=== PATIENT | female | born 1960 | race Caucasian/White ===

== ENCOUNTER 2016-07-26 13:23 | Observation (INO) ==
--- NOTE | 2016-07-26 13:43 | Emergency Department Note ---
Disposition Clinical Impression: Dehydration Syncope Qualifiers: Syncope type: unspecified Qualified Code(s): R55 - Syncope and collapse UTI (urinary tract infection) Qualifiers: Urinary tract infection type: acute cystitis Hematuria presence: without hematuria Qualified Code(s): N30.00 - Acute cystitis without hematuria Disposition: Admitted As Inpatient Condition: Good Referrals: Albert Vallejo MD [Primary Care Provider] - General Adult HPI - General Chief complaint: ED General Medical Stated complaint: fell 3 hrs ago now sleepy Source: patient Limitations: other - History of Present Illness HPI Narrative: Patient presents to the emergency department for evaluation of a fall. states that she typically gets up at 7:00 in the morning, he woke up at 10:00 this morning, she walked to the toilet and when she attempted to sit down she fell to the ground with possible syncopal episode. Upon presentation to the ED she states she feels mildly weak generally without any focal lateralizing deficits. She denies other complaints. Pain Scale: 0 - Related Data Home Medications Medication Instructions Recorded Confirmed Budesonide/Formoterol 160/4.5 2 puff IH BIDR 01/29/15 07/26/16 [Symbicort 160/4.5] ClonazePAM [Klonopin] 1 mg PO BID 01/29/15 07/26/16 FLUoxetine HCl [Prozac] 40 mg PO DAILY 01/29/15 07/26/16 Furosemide [Lasix] 40 mg PO DAILY 01/29/15 07/26/16 Gabapentin [Neurontin] 600 mg PO QAM 01/29/15 07/26/16 HYDROcodone/Acet 7.5/325 mg [[place] 1 tab PO TID PRN 01/29/15 07/26/16 7.5-325 mg] Roflumilast [Daliresp] 500 mcg PO DAILY 01/29/15 07/26/16 Allopurinol [Zyloprim] 100 mg PO DAILY 11/01/15 07/26/16 Benztropine Mesylate 0.5 mg PO BID 11/01/15 07/26/16 Omeprazole [PriLOSEC] 20 mg PO DAILY 11/01/15 07/26/16 Aspirin 325 mg PO DAILY 11/24/15 07/26/16 Carvedilol [Coreg] 6.25 mg PO BID 11/24/15 07/26/16 Clopidogrel [Plavix] 75 mg PO DAILY 11/24/15 07/26/16 Cyanocobalamin (B-12) [Vitamin B12] 500 mg PO DAILY 11/24/15 07/26/16 Insulin Glargine [Lantus] 20 unit SQ QAM 11/24/15 07/26/16 Levothyroxine [Synthroid] 75 mcg PO DAILY 11/24/15 07/26/16 Lisinopril [Zestril] 20 mg PO DAILY 11/24/15 07/26/16 Nicotine Patch [Nicoderm] 21 mg TD DAILY 11/24/15 07/26/16 Thiamine (B-1) [Vitamin B-1] 100 mg PO DAILY 11/24/15 07/26/16 Albuterol Sulfate [Ventolin Hfa] 2 puff IH Q6H PRN 11/25/15 07/26/16 Insulin ASPART [Novolog Flexpen] 5 unit SQ TID 11/25/15 07/26/16 Potassium Chloride [K-Tab ER] 10 meq PO BID 11/25/15 07/26/16 Previous Rx's Medication Instructions Recorded Ferrous Sulfate 325 mg PO BIDWM #60 tablet 01/08/16 Folic Acid 1 mg PO DAILY #30 tablet 01/08/16 Allergies Allergy/AdvReac Type Severity Reaction Status Date / Time No Known Allergies Allergy Verified 01/29/15 10:40 Constitutional: Reports: weakness. Denies: fever, chills Eyes: Denies: eye pain, eye discharge, vision change ENT ED: Denies: ear pain Cardiovascular: Denies: chest pain, palpitations, orthopnea Respiratory: Denies: cough, dyspnea, wheezes, hemoptysis Gastrointestinal: Denies: abdominal pain, nausea, vomiting, diarrhea Genitourinary: Denies: urgency, dysuria, frequency, hematuria Musculoskeletal: Denies: back pain, neck pain Integumentary: Denies: rash Neurological: Denies: headache, numbness, paresthesias, confusion Endocrine: Reports: fatigue Hematological/Lymphatic: Denies: easy bleeding Allergic/Immunologic: Denies: facial swelling Past Medical History - Past Medical History Medical history: Reports: asthma, CHF, COPD, coronary artery disease, CVA, diabetes, hyperlipidemia, hypertension, myocardial infarction Surgical history: Reports: cholecystectomy, coronary bypass (CABG), other Psychiatric history: Reports: anxiety, depression - Social History Smoking Status: Current every day smoker Smokeless Tobacco Status: No Alcohol use: Reports: none Drug use: Reports: none Physical Exam - General Limitations: other General appearance: other - Head Head exam: atraumatic, normocephalic - Eye Eye exam: Present: normal appearance, PERRL, EOMI. Absent: scleral icterus - ENT ENT exam: mucous membranes dry, TM's normal bilaterally - Neck Neck exam: Present: normal inspection, full ROM. Absent: tenderness, meningismus, lymphadenopathy - Respiratory Respiratory exam: Present: normal lung sounds bilaterally - Cardiovascular Cardiovascular exam: Present: regular rate, normal rhythm - Abdominal Exam Abdominal exam: Present: soft, Non-Tender, normal bowel sounds. Absent: distention - Extremities Exam Extremities exam: Present: normal inspection, full ROM, normal capillary refill. Absent: tenderness, pedal edema, joint swelling, calf tenderness - Expanded Lower Extremity Exam Neurovascular/Tendon exam: Present: normal capillary refill. Absent: pulse deficit, motor deficit, sensory deficit, extremity cold to touch - Back Exam Back exam: Present: normal inspection, full ROM. Absent: tenderness - Neurological Exam Neurological exam: Present: alert, oriented X3, CN II-XII intact. Absent: motor sensory deficit - Skin Skin exam: Present: warm, dry, intact, normal color. Absent: rash Course Vital Signs Temperature 98.0 F 07/26/16 13:26 Pulse Rate 88 07/26/16 13:26 Respiratory Rate 16 07/26/16 13:26 Blood Pressure 120/57 07/26/16 13:26 O2 Sat by Pulse Oximetry 100 07/26/16 13:26 Temperature 98.0 F 07/26/16 13:26 Pulse Rate 95 07/26/16 17:06 Respiratory Rate 16 07/26/16 17:06 Blood Pressure 145/75 07/26/16 17:06 O2 Sat by Pulse Oximetry 98 07/26/16 17:06 Oxygen Delivery Oxygen Delivery Nasal Cannula Medical Decision Making - Medical Records Discussed the case with Dr. Escalante, patient will be admitted to the hospitalist service for ongoing evaluation and treatment. Patient remains hemodynamically stable at this time. Patient is alert and oriented moving all extremities without complaints at 1800. - Lab Data Lab results reviewed: Yes I reviewed the patient's lab results. Result diagrams: 07/26/16 13:55 07/26/16 13:55 Lab Results 07/26/16 07/26/16 07/26/16 Range/Units 13:55 13:55 13:55 WBC 8.1 (4.3-11.1) K/mcL RBC 3.45 L (3.82-4.97) M/mcL Hgb 10.2 L (11.5-15.4) g/dL Hct 30.9 L (35.3-44.9) % MCV 89.6 (83.0-100.0) fL MCH 29.6 (28.0-33.3) pg MCHC 33.0 (31.6-35.5) g/dL RDW 14.5 (11.5-14.5) % Plt Count 141 (140-400) K/mcL MPV 12.8 H (9.4-12.4) fL Immature Gran % 0.4 (0-4) % Seg Neutrophils % 63.3 % Lymphocytes % 28.5 % Monocytes % 6.0 % Eosinophils % 1.4 % Basophils % 0.4 % Neutrophils # 5.2 (1.6-8.9) K/mcL Lymphocytes # 2.3 (0.6-4.6) K/mcL Monocytes # 0.5 (0.0-1.3) K/mcL Eosinophils # 0.1 (0.0-0.6) K/mcL Basophils # 0.0 (0.0-0.2) K/mcL PT 10.8 (9.4-12.1) Seconds INR 1.0 APTT 24.2 L (26.0-36.0) Seconds Sodium (136-145) mEq/L Potassium (3.5-4.5) mEq/L Chloride (98-109) mEq/L Carbon Dioxide (19-29) mEq/L BUN (7-20) mg/dL Creatinine (0.57-1.11) mg/dL Est GFR ( Amer) (> 60) Est GFR (Non-Af Amer) (> 60) BUN/Creatinine Ratio (6-26) Glucose (70-99) mg/dL Calculated Osmolality (280-300) Calcium (8.6-10.8) mg/dL Total Bilirubin 0.2 (0.2-1.2) mg/dL Direct Bilirubin 0.1 (0.0-0.5) mg/dL Indirect Bilirubin 0.1 (0.0-1.2) mg/dL AST 9 (5-34) Units/L ALT 9 (0-55) Units/L Alkaline Phosphatase 60 (38-126) Units/L Ammonia (18-72) mcmol/L Troponin I (0-0.03) ng/mL Serum Total Protein 5.4 L (6.0-8.3) g/dL Albumin 2.6 L (3.5-5.0) g/dL Globulin 2.8 (2.4-3.5) g/dL Albumin/Globulin Ratio 0.9 L (1.1-2.2) Lipase 101 H (8-78) Units/L Urine Color (Yellow) Urine Clarity (Clear) Urine pH (5.0-8.0) pH Units Ur Specific [place] (1.010-1.025) Urine Protein (Neg-Trace) mg/dL Urine Glucose (UA) (Normal) mg/dL Urine Ketones (Negative) mg/dL Urine Blood (Negative) Urine Nitrite (Negative) Urine Bilirubin (Negative) Urine Urobilinogen (Normal) mg/dL Ur Leukocyte Esterase (Negative) Urine Microscopic RBC (0-3) per hpf Urine Microscopic WBC (0-3) per hpf Ur Squamous Epith Cells (None-Few) per lpf Ur Renal Epithelial Cell (None-Few) per hpf Amorphous Sediment (Few) Urine Bacteria (None-Few) per hpf Granular Casts (None Seen) per lpf Ur Culture Indicated? (NO) Urine Opiates Screen (Kpauty=884) ng/mL Ur Oxycodone Screen (Cutoff= 100) ng/mL Ur Barbiturates Screen (Fxlgbs=140) ng/mL Ur Phencyclidine Scrn (Cutoff=25) ng/mL Ur Amphetamines Screen (Hpxehq=6652) ng/mL U Benzodiazepines Scrn (Aupidi=226) ng/mL Urine Cocaine Screen (Cutoff= 300) ng/mL U Marijuana (THC) Screen (Cutoff = 50) ng/mL 07/26/16 07/26/16 07/26/16 Range/Units 13:55 13:55 13:55 WBC (4.3-11.1) K/mcL RBC (3.82-4.97) M/mcL Hgb (11.5-15.4) g/dL Hct (35.3-44.9) % MCV (83.0-100.0) fL MCH (28.0-33.3) pg MCHC (31.6-35.5) g/dL RDW (11.5-14.5) % Plt Count (140-400) K/mcL MPV (9.4-12.4) fL Immature Gran % (0-4) % Seg Neutrophils % % Lymphocytes % % Monocytes % % Eosinophils % % Basophils % % Neutrophils # (1.6-8.9) K/mcL Lymphocytes # (0.6-4.6) K/mcL Monocytes # (0.0-1.3) K/mcL Eosinophils # (0.0-0.6) K/mcL Basophils # (0.0-0.2) K/mcL PT (9.4-12.1) Seconds INR APTT (26.0-36.0) Seconds Sodium 142 (136-145) mEq/L Potassium 4.3 (3.5-4.5) mEq/L Chloride 112 H (98-109) mEq/L Carbon Dioxide 20 (19-29) mEq/L BUN 50 H (7-20) mg/dL Creatinine 1.48 H (0.57-1.11) mg/dL Est GFR ( Amer) 44 L (> 60) Est GFR (Non-Af Amer) 36 L (> 60) BUN/Creatinine Ratio 34 H (6-26) Glucose 197 H (70-99) mg/dL Calculated Osmolality 313 H (280-300) Calcium 8.7 (8.6-10.8) mg/dL Total Bilirubin (0.2-1.2) mg/dL Direct Bilirubin (0.0-0.5) mg/dL Indirect Bilirubin (0.0-1.2) mg/dL AST (5-34) Units/L ALT (0-55) Units/L Alkaline Phosphatase (38-126) Units/L Ammonia 19 (18-72) mcmol/L Troponin I 0.04 H* (0-0.03) ng/mL Serum Total Protein (6.0-8.3) g/dL Albumin (3.5-5.0) g/dL Globulin (2.4-3.5) g/dL Albumin/Globulin Ratio (1.1-2.2) Lipase (8-78) Units/L Urine Color (Yellow) Urine Clarity (Clear) Urine pH (5.0-8.0) pH Units Ur Specific [place] (1.010-1.025) Urine Protein (Neg-Trace) mg/dL Urine Glucose (UA) (Normal) mg/dL Urine Ketones (Negative) mg/dL Urine Blood (Negative) Urine Nitrite (Negative) Urine Bilirubin (Negative) Urine Urobilinogen (Normal) mg/dL Ur Leukocyte Esterase (Negative) Urine Microscopic RBC (0-3) per hpf Urine Microscopic WBC (0-3) per hpf Ur Squamous Epith Cells (None-Few) per lpf Ur Renal Epithelial Cell (None-Few) per hpf Amorphous Sediment (Few) Urine Bacteria (None-Few) per hpf Granular Casts (None Seen) per lpf Ur Culture Indicated? (NO) Urine Opiates Screen (Hhggav=863) ng/mL Ur Oxycodone Screen (Cutoff= 100) ng/mL Ur Barbiturates Screen (Fivxct=998) ng/mL Ur Phencyclidine Scrn (Cutoff=25) ng/mL Ur Amphetamines Screen (Jkegdr=3491) ng/mL U Benzodiazepines Scrn (Tcpszx=411) ng/mL Urine Cocaine Screen (Cutoff= 300) ng/mL U Marijuana (THC) Screen (Cutoff = 50) ng/mL 07/26/16 07/26/16 07/26/16 Range/Units 15:43 15:43 16:41 WBC (4.3-11.1) K/mcL RBC (3.82-4.97) M/mcL Hgb (11.5-15.4) g/dL Hct (35.3-44.9) % MCV (83.0-100.0) fL MCH (28.0-33.3) pg MCHC (31.6-35.5) g/dL RDW (11.5-14.5) % Plt Count (140-400) K/mcL MPV (9.4-12.4) fL Immature Gran % (0-4) % Seg Neutrophils % % Lymphocytes % % Monocytes % % Eosinophils % % Basophils % % Neutrophils # (1.6-8.9) K/mcL Lymphocytes # (0.6-4.6) K/mcL Monocytes # (0.0-1.3) K/mcL Eosinophils # (0.0-0.6) K/mcL Basophils # (0.0-0.2) K/mcL PT (9.4-12.1) Seconds INR APTT (26.0-36.0) Seconds Sodium (136-145) mEq/L Potassium (3.5-4.5) mEq/L Chloride (98-109) mEq/L Carbon Dioxide (19-29) mEq/L BUN (7-20) mg/dL Creatinine (0.57-1.11) mg/dL Est GFR ( Amer) (> 60) Est GFR (Non-Af Amer) (> 60) BUN/Creatinine Ratio (6-26) Glucose (70-99) mg/dL Calculated Osmolality (280-300) Calcium (8.6-10.8) mg/dL Total Bilirubin (0.2-1.2) mg/dL Direct Bilirubin (0.0-0.5) mg/dL Indirect Bilirubin (0.0-1.2) mg/dL AST (5-34) Units/L ALT (0-55) Units/L Alkaline Phosphatase (38-126) Units/L Ammonia (18-72) mcmol/L Troponin I 0.04 H* (0-0.03) ng/mL Serum Total Protein (6.0-8.3) g/dL Albumin (3.5-5.0) g/dL Globulin (2.4-3.5) g/dL Albumin/Globulin Ratio (1.1-2.2) Lipase (8-78) Units/L Urine Color Yellow (Yellow) Urine Clarity Slightly Cloudy A (Clear) Urine pH 5.0 (5.0-8.0) pH Units Ur Specific [place] 1.020 (1.010-1.025) Urine Protein >=300 H (Neg-Trace) mg/dL Urine Glucose (UA) Normal (Normal) mg/dL Urine Ketones Negative (Negative) mg/dL Urine Blood Trace-intact H (Negative) Urine Nitrite Positive A (Negative) Urine Bilirubin Negative (Negative) Urine Urobilinogen Normal (Normal) mg/dL Ur Leukocyte Esterase Trace H (Negative) Urine Microscopic RBC 0-3 (0-3) per hpf Urine Microscopic WBC 15-30 H (0-3) per hpf Ur Squamous Epith Cells Few (None-Few) per lpf Ur Renal Epithelial Cell Few (None-Few) per hpf Amorphous Sediment Moderate H (Few) Urine Bacteria Many H (None-Few) per hpf Granular Casts Few H (None Seen) per lpf Ur Culture Indicated? YES A (NO) Urine Opiates Screen Negative (Jgaqxx=350) ng/mL Ur Oxycodone Screen Negative (Cutoff= 100) ng/mL Ur Barbiturates Screen Negative (Ysxusn=893) ng/mL Ur Phencyclidine Scrn Negative (Cutoff=25) ng/mL Ur Amphetamines Screen Negative (Zuhlix=8603) ng/mL U Benzodiazepines Scrn Negative (Iogvzt=825) ng/mL Urine Cocaine Screen Negative (Cutoff= 300) ng/mL U Marijuana (THC) Screen Negative (Cutoff = 50) ng/mL ITS Impressions Chest X-Ray 07/26/16 13:44 IMPRESSION: Small left pleural effusion and left basilar airspace disease, which may reflect atelectasis, though pneumonia cannot be excluded in the correct clinical setting. D/ / 07/26/2016 15:34:39 Randy Bell MD / earnold Interpreting Provider: Randy Bell MD Head CT 07/26/16 13:45 IMPRESSION: 1. No acute intracranial abnormality. 2. Evolution of a chronic lacunar infarct in the left thalamus with an unchanged tiny old lacunar infarct in the right thalamus. D/ / Sharad Romero MD / Sharad Romero MD Interpreting Provider: Sharad Romero MD Pelvis X-Ray 07/26/16 14:18 IMPRESSION: 1. No acute abnormality. D/ / Jeromy Anna MD / Jeromy Anna MD Interpreting Provider: Jeromy Anna MD - Radiology Data Radiology results reviewed: Yes I reviewed the patient's radiology results. - EKG Data EKG #1 EKG attestation: Yes I reviewed and interpreted this EKG. EKG shows normal: sinus rhythm (Normal sinus rhythm with rate of 96. T-wave inversion inferiorly. Nonspecific ST and T-wave changes without evidence of acute ST segment changes.)
[2016-07-26] MEDS ORDERED: 0.9 % Sodium Chloride 500 ML IVC ONE (13:44)
[2016-07-26 14:06] LABS: Basophils % 0.4 %; Eosinophils # 0.1 K/mcL (0.0-0.6); Eosinophils % 1.4 %; Hematocrit 30.9 % (35.3-44.9); Hemoglobin 10.2 g/dL (11.5-15.4); Immature Granulocytes % 0.4 % (0-4); Lymphocytes # 2.3 K/mcL (0.6-4.6); Lymphocytes % 28.5 %; Mean Corpuscular Hemoglobin 29.6 pg (28.0-33.3); Mean Corpuscular Volume 89.6 fL (83.0-100.0); Mean Platelet Volume 12.8 fL (9.4-12.4); Monocytes # 0.5 K/mcL (0.0-1.3); Neutrophils # 5.2 K/mcL (1.6-8.9); Platelet Count 141 K/mcL (140-400); Red Blood Count 3.45 M/mcL (3.82-4.97); Red Cell Distribution Width 14.5 % (11.5-14.5); Segmented Neutrophils % 63.3 %
[2016-07-26 14:14] LABS: Prothrombin Time 10.8 Seconds (9.4-12.1)
[2016-07-26 14:16] LABS: Activated Partial Thrombo Time 24.2 Seconds (26.0-36.0)
[2016-07-26 14:25] LABS: Albumin 2.6 g/dL (3.5-5.0); Albumin/Globulin Ratio 0.9 (1.1-2.2); Bilirubin,Direct 0.1 mg/dL (0.0-0.5); Bilirubin,Indirect 0.1 mg/dL (0.0-1.2); Bilirubin,Total 0.2 mg/dL (0.2-1.2); Calcium 8.7 mg/dL (8.6-10.8); Globulin 2.8 g/dL (2.4-3.5); Potassium 4.3 mEq/L (3.5-4.5); Total Protein 5.4 g/dL (6.0-8.3)
[2016-07-26 15:56] LABS: Bilirubin,Urine Negative (Negative); Blood,Urine Trace-intact (Negative); Clarity,Urine Slightly Cloudy (Clear); Color,Urine Yellow (Yellow); Glucose,Urine (UA) Normal (Normal); Ketones,Urine Negative (Negative); Leukocyte Esterase,Urine Trace (Negative); Nitrite,Urine Positive (Negative); Protein,Urine >=300 mg/dL (Neg-Trace); Urobilinogen,Urine Normal (Normal)
[2016-07-26 16:02] LABS: Amorphous Sediment,Urine Moderate (Few); Bacteria,Urine Many per hpf (None-Few); Granular Casts,Urine Few per lpf (None Seen); RBC,Urine 0-3 per hpf (0-3); Renal Epithelial Cells,Urine Few per hpf (None-Few); Squamous Epithelial Cell,Urine Few per lpf (None-Few); WBC,Urine 15-30 per hpf (0-3)
[2016-07-26 16:04] LABS: Amphetamine Screen,Urine Negative ng/mL (Cutoff=1000); Barbiturate Screen,Urine Negative ng/mL (Cutoff=200); Benzodiazepines Screen,Urine Negative ng/mL (Cutoff=200); Cannabinoid Screen,Urine Negative ng/mL (Cutoff = 50); Cocaine Screen,Urine Negative ng/mL (Cutoff= 300); Opiate Screen,Urine Negative ng/mL (Cutoff=300); Phencyclidine Screen,Urine Negative ng/mL (Cutoff=25)
[2016-07-26] MEDS ORDERED: Aspirin 81 MG TAB.CHEW PO ONE (16:23)
[2016-07-26] MEDS ORDERED: Levofloxacin 750 MG/150 ML 750 MG/150 ML BAG IVPB ONE (16:53)
[2016-07-26] MEDS ORDERED: Naloxone 0.4 MG/ML INJ IVP PRN (18:06)
[2016-07-26] MEDS: 0.9 % Sodium Chloride 1,000 ML IVC SCH (19:34)
[2016-07-26] MEDS ORDERED: *HR* HYDROcodone/Acet 7.5/325 mg TABLET PO PRN (20:06)
[2016-07-27] MEDS: 0.9 % Sodium Chloride 1,000 ML IVC SCH (03:33)
[2016-07-27 05:34] LABS: Basophils % 0.2 %; Eosinophils # 0.1 K/mcL (0.0-0.6); Eosinophils % 1.1 %; Hematocrit 27.5 % (35.3-44.9); Hemoglobin 8.9 g/dL (11.5-15.4); Immature Granulocytes % 0.3 % (0-4); Lymphocytes # 1.4 K/mcL (0.6-4.6); Lymphocytes % 14.2 %; Mean Corpuscular HGB Conc 32.4 g/dL (31.6-35.5); Mean Corpuscular Hemoglobin 29.3 pg (28.0-33.3); Mean Corpuscular Volume 90.5 fL (83.0-100.0); Monocytes # 0.6 K/mcL (0.0-1.3); Monocytes % 5.7 %; Neutrophils # 7.7 K/mcL (1.6-8.9); Platelet Count 111 K/mcL (140-400); Red Blood Count 3.04 M/mcL (3.82-4.97); Red Cell Distribution Width 14.4 % (11.5-14.5); Segmented Neutrophils % 78.5 %
[2016-07-27 05:54] LABS: BUN/Creatinine Ratio 37 (6-26); Blood Urea Nitrogen 37 mg/dL (7-20); Calcium 8.2 mg/dL (8.6-10.8); Carbon Dioxide 21 mEq/L (19-29); Chloride 113 mEq/L (98-109); Glucose 271 mg/dL (70-99); Osmolality,Calculated 310 (280-300); Potassium 4.5 mEq/L (3.5-4.5); Sodium 141 mEq/L (136-145); eGFR For African Americans > 60 (> 60); eGFR For Non-African Americans 57 (> 60)
[2016-07-27 10:44] VITALS: BP 181/84
--- NOTE | 2016-07-27 15:37 | Internal Med History&Physical ---
Date of Encounter: 07/27/16 Time of Encounter: 14:50 Assessment and Plan (1) Syncope Current visit: Yes Status: Acute Etiology is not obvious. She is adamant she be discharged home and does not want further workup done. Qualifiers: Syncope type: unspecified Qualified Code(s): R55 - Syncope and collapse (2) Azotemia Current visit: Yes Status: Acute She claims she takes Lasix 40 mg twice a day. I will reduce dose to 20 mg twice a day to lessen azotemia (3) Anemia Current visit: Yes Status: Acute She is not presently taking folate from review of her home medication list. I will start 1 mg daily Qualifiers: Anemia type: folate deficiency Folate deficiency anemia type: unspecified folate deficiency Qualified Code(s): D52.9 - Folate deficiency anemia, unspecified Internal Medicine - H&P: HPI Chief complaint: Syncope Admitted From: Home Plans for Post Hospital Care: Home History of present illness: Ms. Arshad is a 56 year old female who was brought to emergency room after she had a syncopal episode in the bathroom at home. She does not recall any details about the syncope or resultant fall. [facility] She denies any significant injury from the fall. She was evaluated in emergency room and admitted to [facility] floor for ongoing care needs. She states she has had 3 previous syncopal episodes with fall. The most recent was approximate 6 months ago. She reports hospitalization at [facility] after each of the 3 previous falls without any etiology of the syncope found. She denies episodes of near syncope or falling otherwise. Her cardiovascular history is significant for hypertension. She has known ASHD with 5 vessel CABG February 2014 at [facility]. He had Regadenoson nuclear stress test 10/22/2015 which showed no significant EKG changes. There was a large moderate - severe intensity fixed perfusion defect in the basal mid inferior wall, basal mid inferior lateral wall, and apical lateral wall consistent with prior MA. An echocardiogram 10/21/2015 showed LVEF of 25-30% with biatrial enlargement. No mention of diastolic function was made. Valvular function was not assessed. She denies DVT or pulmonary embolus. Past Med Surg Social Fam HX - Past Medical History Medical history: asthma, CHF, COPD, coronary artery disease, CVA, diabetes, hyperlipidemia, hypertension, myocardial infarction Psychiatric history: anxiety, depression - Past Surgical History Surgical History: cholecystectomy, coronary bypass (CABG), other - Social History Smoking Status: Current every day smoker Packs per day: 1 Smokeless Tobacco Status: No Alcohol use: none Drug use: none - Family History Mother Living Status: Still Living Father Family Member Ethnicity: Non- Living Status: Hx Family Cardiac Disorders: Yes Hx Family Endocrine Disorder: Yes Internal Medicine - H&P: Meds Budesonide/Formoterol 160/4.5 [Symbicort 160/4.5] 2 puff IH BIDR 01/29/15 [ History] ClonazePAM [Klonopin] 1 mg PO BID 01/29/15 [History] Furosemide [Lasix] 40 mg PO BID 01/29/15 [History] Gabapentin [Neurontin] 600 mg PO QAM 01/29/15 [History] HYDROcodone/Acet 7.5/325 mg [[place] 7.5-325 mg] 1 tab PO TID PRN 01/29/15 [ History] Roflumilast [Daliresp] 500 mcg PO DAILY 01/29/15 [History] Omeprazole [PriLOSEC] 20 mg PO DAILY 11/01/15 [History] Aspirin 325 mg PO DAILY 11/24/15 [History] Carvedilol [Coreg] 3.125 mg PO BID 11/24/15 [History] Cyanocobalamin (B-12) [Vitamin B12] 1,000 mg PO DAILY 11/24/15 [History] Insulin Glargine [Lantus] 34 unit SQ QAM 11/24/15 [History] Lisinopril [Zestril] 20 mg PO DAILY 11/24/15 [History] Albuterol Sulfate [Ventolin Hfa] 2 puff IH QID PRN 11/25/15 [History] Insulin ASPART [Novolog Flexpen] 10 unit SQ TID 11/25/15 [History] Ferrous Sulfate 325 mg PO BIDWM #60 tablet 01/08/16 [Rx] Aclidinium [place] [Tudorza Pressair] 400 mcg IH BID 07/27/16 [History] Atorvastatin Calcium 80 mg PO QDPC 07/27/16 [History] Cholestyramine/Aspartame [Cholestyramine Light Packet] 4 gm PO BID PRN 07/27/16 [History] Fluticasone Propionate Nasal [Flonase] 100 mcg NS QDPC 07/27/16 [History] Gabapentin [Neurontin] 900 mg PO QPM 07/27/16 [History] Quetiapine Fumarate [Seroquel] 800 mg PO QPM 07/27/16 [History] Allergies No Known Allergies Allergy (Verified 01/29/15 10:40) All Systems PM: A 10-system review of systems was performed and is negative for pertinent findings except as documented above in the HPI. Review of systems: Gen.: Her weight has decreased from 167 pounds at the March 2014 [facility] hospitalization to present weight of approximately 160 pounds now. Cardiovascular: As per history of present illness Respiratory: She has smoked since age 17 up to one pack per day. She had PFTs approximately June 2013 and was told she had COPD/emphysema. She wears oxygen at home. She claims a negative LISSETT workup in the past GI: She has had cholecystectomy. She had colonoscopy with polypectomy and an unremarkable EGD June 2013 at [facility]. She has GERD. She denies disorders with her liver or exocrine pancreas : She denies hematuria dysuria or kidney stones Neurologic: She denies large distribution strokes or seizures Endocrine: She was diagnosed with DM 2 approximately 1999. She denies thyroid disease but has hyperlipidemia Hematology/oncology: She denies internal malignancies. She had anemia testing done in December 2015 which showed folate deficiency. Psychiatric: She has anxiety and depression Musk skeletal: She has fibromyalgia and was diagnosed with possible diabetic peripheral neuropathy in the past Dermatologic: She has had MRSA in skin lesions on her back in the past. These have healed. - Constitutional Vitals: Temp Pulse Resp BP Pulse Ox 98.7 F 90 16 181/84 96 07/27/16 10:43 07/27/16 10:43 07/27/16 10:43 07/27/16 10:43 07/27/16 10:43 Exam: Gen.: She is a well-developed well-nourished female who appears in no acute distress at present time HEENT: Head is atraumatic and normocephalic. Eyes: EOMI. There is no scleral icterus. Mouth: Mucosa is moist. Neck: Supple and nontender. There is no thyromegaly or adenopathy noted. Heart: Regular without murmurs gallops or ectopics Lungs: No wheezes or crackles are heard. Abdomen: Soft and nontender. No masses or guarding noted. Extremities: There is no cyanosis edema or clubbing noted. Dorsalis pedis and posttibial pulses are trace palpable bilaterally. Neurologic: Mental status: She is talkative and a good historian. Cranial nerves: Smile is symmetric. Forehead wrinkles bilaterally. Tongue protrudes midline. EOMI. Motor: There is no pronator drift. Cerebellar: Finger to nose is intact bilaterally. Skin: Warm and dry Internal Med - H&P Results - Labs CBC & Chem 7: 07/27/16 05:00 07/27/16 05:00 Labs: Short CBC 07/27/16 Range/Units 05:00 WBC 9.8 (4.3-11.1) K/mcL Hgb 8.9 L (11.5-15.4) g/dL Hct 27.5 L (35.3-44.9) % Plt Count 111 L (140-400) K/mcL Neutrophils # 7.7 (1.6-8.9) K/mcL BMP 07/27/16 05:00 Sodium 141 Potassium 4.5 Chloride 113 H Carbon Dioxide 21 BUN 37 H D Creatinine 1.00 Glucose 271 H Calcium 8.2 L Cardiac Enzymes 07/26/16 07/27/16 Range/Units 22:49 05:00 Troponin I 0.03 0.04 H* (0-0.03) ng/mL
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
--- NOTE | 2016-07-27 16:32 | Electrocardiograph Report ---
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
--- NOTE | 2016-07-27 16:34 | Electrocardiograph Report ---
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
== END 2016-07-27 16:20 | disposition home or self-care (01) ==
LOC: INPPIK 13:23 → EMEROOPIK 13:23 → INPPIK 18:33
PROVIDERS: ADMIT Internal Medicine; ATTEND Internal Medicine

== ENCOUNTER 2017-09-20 18:59 | Observation (INO) ==
--- NOTE | 2017-09-20 19:05 | Emergency Department Note ---
Disposition Clinical Impression: UTI (urinary tract infection), Hypertensive urgency Disposition: Admitted As Inpatient Condition: Fair Referrals: Albert Vallejo MD [Primary Care Provider] - Forms: ED Satisfaction Letter Time of Disposition: 20:35 ( will admit) Weakness HPI - General Chief complaint: ED Weakness Stated complaint: weakness Time Seen by Provider: 09/20/17 19:04 Source: EMS Mode of arrival: EMS Limitations: no limitations Nursing Notes Reviewed: Yes Vital Signs Reviewed: Yes - History of Present Illness HPI Narrative: 57-year-old female who presented to the emergency department via EMS with complaints of lightheadedness and dizziness. Patient states that this came about her all of a sudden. She has a known history of cardiac disease prior TIA. Reports that she has not taken any her medications were over 6 months, and does not state why it is that she has not taken her medications. On arrival patient's blood pressure was 208/110. Patient denies any chest pain she complains of mild shortness of breath. Patient is a smoker Pt Subjective Complaint: generalized weakness/fatigue Duration: intermittent Location: generalized Migration: none Pain Severity: mild Improves with: none Worsens with: none Context: new medication Associated symptoms: Reports: denies other symptoms. Denies: chest pain, confusion, dark stools, diaphoresis, dysuria, easy bruising, fever/chills, headaches, loss of appetite, nausea/vomiting, myalgias, rash, shortness of breath, syncope - Related Data Home Medications Medication Instructions Recorded Confirmed Budesonide/Formoterol 160/4.5 2 puff IH BIDR 01/29/15 08/07/17 [Symbicort 160/4.5] Gabapentin [Neurontin] 600 mg PO QAM 01/29/15 08/07/17 Roflumilast [Daliresp] 500 mcg PO DAILY 01/29/15 08/07/17 Omeprazole [PriLOSEC] 20 mg PO DAILY 11/01/15 08/07/17 Aspirin 325 mg PO DAILY 11/24/15 08/07/17 Carvedilol [Coreg] 3.125 mg PO BID 11/24/15 08/07/17 Cyanocobalamin (B-12) [Vitamin B12] 1,000 mg PO DAILY 11/24/15 08/07/17 Insulin Glargine [Lantus] 34 unit SQ QAM 11/24/15 08/07/17 Lisinopril [Zestril] 20 mg PO DAILY 11/24/15 08/07/17 Albuterol Sulfate [Ventolin Hfa] 2 puff IH QID PRN 11/25/15 08/07/17 Insulin ASPART [Novolog Flexpen] 10 unit SQ TID 11/25/15 08/07/17 Aclidinium [place] [Tudorza 400 mcg IH BID 07/27/16 08/07/17 Pressair] Atorvastatin Calcium 80 mg PO QDPC 07/27/16 08/07/17 Cholestyramine/Aspartame 4 gm PO BID PRN 07/27/16 08/07/17 [Cholestyramine Light Packet] Fluticasone Propionate Nasal 100 mcg NS QDPC 07/27/16 08/07/17 [Flonase] Gabapentin [Neurontin] 900 mg PO QPM 07/27/16 08/07/17 Quetiapine Fumarate [Seroquel] 800 mg PO QPM 07/27/16 08/07/17 Previous Rx's Medication Instructions Recorded Ferrous Sulfate 325 mg PO BIDWM #60 tablet 01/08/16 Folic Acid 1 mg PO DAILY #30 tablet 07/27/16 Furosemide [Lasix] 20 mg PO BID 365 Days tablet 07/27/16 Ibuprofen [Motrin] 800 mg PO Q8HR #14 tablet 08/07/17 Allergies Allergy/AdvReac Type Severity Reaction Status Date / Time No Known Allergies Allergy Verified 08/07/17 01:29 Constitutional: Denies: fever, chills, weakness, weight change Eyes: Denies: eye pain, eye discharge, vision change ENT ED: Denies: ear pain, throat pain, dental pain, hearing loss, epistaxis, congestion, dysphagia Cardiovascular: Denies: chest pain, palpitations, dyspnea on exertion, edema, syncope Respiratory: Denies: cough, dyspnea, wheezes, hemoptysis, stridor Gastrointestinal: Denies: abdominal pain, nausea, vomiting, diarrhea, constipation, hematemesis, melena, hematochezia Genitourinary: Denies: dysuria, frequency, hematuria, discharge Musculoskeletal: Denies: back pain, neck pain, arthralgia, myalgia Integumentary: Denies: rash, abrasion, lesions Neurological: Denies: headache, weakness, numbness, paresthesias, confusion, abnormal gait, vertigo Psychiatric: Denies: anxiety, depression, suicidal thoughts, homicidal thoughts , auditory hallucinations, visual hallucinations Endocrine: Denies: fatigue Hematological/Lymphatic: Denies: easy bleeding, easy bruising Allergic/Immunologic: Denies: facial swelling, urticaria Past Medical History - Past Medical History Medical history: Reports: arthritis, asthma, CHF, COPD, coronary artery disease , CVA, diabetes, hyperlipidemia, hypertension, myocardial infarction, other Surgical history: Reports: cholecystectomy, coronary bypass (CABG), other Psychiatric history: Reports: anxiety, depression - Social History Smoking Status: Current every day smoker Smokeless Tobacco Status: No Alcohol use: Reports: none Drug use: Reports: none Physical Exam - General Limitations: no limitations General appearance: alert, in no apparent distress - Head Head exam: atraumatic, normocephalic, normal inspection - Eye Eye exam: Present: normal appearance, PERRL, EOMI - Expanded Eye Exam Pupils: Left: reactive - ENT ENT exam: normal exam, normal oropharynx, mucous membranes moist - Expanded ENT Exam External ear exam: Present: normal external inspection Mouth exam: Present: normal external inspection Teeth exam: Present: normal inspection Throat exam: Present: normal inspection - Neck Neck exam: Present: normal inspection, full ROM, trachea midline - Chest Chest inspection: Present: other (Patient has a midline surgical sternotomy scar ) - Respiratory Respiratory exam: Present: normal lung sounds bilaterally - Cardiovascular Cardiovascular exam: Present: regular rate, normal rhythm, normal heart sounds - Abdominal Exam Abdominal exam: Present: soft, Non-Tender. Absent: tenderness, distention, guarding, rebound, rigidity - Extremities Exam Extremities exam: Present: normal inspection, full ROM, tenderness, pedal edema , other (Mild bilateral lower extremity edema 1 over 4 bilaterally) - Expanded Upper Extremity Exam Shoulder exam: Present: normal inspection, full ROM Arm exam: Present: normal inspection, full ROM Elbow exam: Present: normal inspection, full ROM Forearm/Wrist exam: Present: normal inspection, full ROM Hand exam: Present: normal inspection, full ROM Vascular exam: Normal: capillary refill, radial pulse - Expanded Lower Extremity Exam Hip/Pelvis exam: Present: normal inspection, full ROM Upper leg exam: Present: normal inspection, full ROM Knee exam: Present: normal inspection, full ROM Lower leg exam: Present: normal inspection, full ROM Ankle exam: Present: normal inspection, full ROM Foot/toe exam: Present: normal inspection, full ROM Neurovascular/Tendon exam: Absent: motor deficit, sensory deficit, tendon deficit - Back Exam Back exam: Present: normal inspection, full ROM. Absent: tenderness - Neurological Exam Neurological exam: Present: alert, oriented X3 - Expanded Neurological Exam Patient oriented to: Present: person, place, time Coma Scale Eye Opening: Spontaneous Coma Scale Motor Response: Obeys Commands Coma Scale Verbal Response: Oriented Coma Scale Total: 15 - Psychiatric Psychiatric exam: Present: normal affect, normal mood - Skin Skin exam: Present: warm, dry, intact, normal color Course Vital Signs Temperature 98.0 F 09/20/17 19:03 Pulse Rate 80 09/20/17 19:03 Respiratory Rate 18 09/20/17 19:03 Blood Pressure 204/102 09/20/17 19:03 O2 Sat by Pulse Oximetry 98 09/20/17 19:03 Temperature 98.0 F 09/20/17 19:03 Pulse Rate 82 09/20/17 20:33 Respiratory Rate 18 09/20/17 20:33 Blood Pressure 171/70 09/20/17 20:33 O2 Sat by Pulse Oximetry 98 09/20/17 20:33 Oxygen Delivery Oxygen Delivery Room Air Weakness - MDM Narrative Medical decision making narrative: Labs are obtained, CT of head without contrast EKG and chest x-ray were also obtained. Patient was given hydralazine 20 mg IV, repeat blood pressure on admission is 170/71. Blood cultures were obtained and patient was given 2 g of Rocephin IV for urinary tract infection. - Differential Diagnosis Differential Diagnosis: Likely: hypoglycemia, sepsis/infection, dehydration, stroke, metabolic - Medical Records Medical records reviewed: Yes I reviewed the patient's medical records. - Lab Data Lab results reviewed: Yes I reviewed the patient's lab results. Result diagrams: 09/20/17 19:22 09/20/17 19:22 Lab Results 09/20/17 09/20/17 09/20/17 Range/Units 19:22 19:22 19:22 WBC 7.5 (4.3-11.1) K/mcL RBC 4.08 (3.82-4.97) M/mcL Hgb 12.0 (11.5-15.4) g/dL Hct 36.4 (35.3-44.9) % MCV 89.2 (83.0-100.0) fL MCH 29.4 (28.0-33.3) pg MCHC 33.0 (31.6-35.5) g/dL RDW 13.1 (11.5-14.5) % Plt Count 155 (140-400) K/mcL MPV 11.7 (9.4-12.4) fL Immature Gran % 0.3 (0-4) % Seg Neutrophils % 69.2 % Lymphocytes % 23.6 % Monocytes % 5.0 % Eosinophils % 1.2 % Basophils % 0.7 % Neutrophils # 5.2 (1.6-8.9) K/mcL Lymphocytes # 1.8 (0.6-4.6) K/mcL Monocytes # 0.4 (0.0-1.3) K/mcL Eosinophils # 0.1 (0.0-0.6) K/mcL Basophils # 0.1 (0.0-0.2) K/mcL PT 11.0 (9.4-12.1) Seconds INR 1.0 Sodium 135 L (136-145) mEq/L Potassium 4.0 (3.5-5.1) mEq/L Chloride 104 (98-107) mEq/L Carbon Dioxide 25 (23-29) mEq/L BUN 23 H (6-20) mg/dL Creatinine 1.41 H (0.60-1.20) mg/dL Est GFR ( Amer) 46 L (> 60) Est GFR (Non-Af Amer) 38 L (> 60) BUN/Creatinine Ratio 16 (6-26) Glucose 203 H (70-105) mg/dL Calculated Osmolality 289 (280-300) Lactic Acid (0.5-2.2) mmol/L Calcium 8.9 (8.6-10.3) mg/dL Total Bilirubin 0.3 (0.3-1.0) mg/dL AST 14 (13-39) Units/L ALT 8 (7-52) Units/L Alkaline Phosphatase 69 (34-104) Units/L Creatine Kinase 74 (30-223) Units/L Troponin I < 0.03 (< 0.04) ng/mL Serum Total Protein 6.2 L (6.4-8.9) g/dL Albumin 3.1 L (3.5-5.7) g/dL Globulin 3.1 (2.4-3.5) g/dL Albumin/Globulin Ratio 1.0 L (1.1-2.2) TSH 1.983 (0.340-5.600) mcIU/mL Urine Color (Yellow) Urine Clarity (Clear) Urine pH (5.0-8.0) pH Units Ur Specific [place] (1.010-1.025) Urine Protein (Neg-Trace) mg/dL Urine Glucose (UA) (Normal) mg/dL Urine Ketones (Negative) mg/dL Urine Blood (Negative) Urine Nitrite (Negative) Urine Bilirubin (Negative) Urine Urobilinogen (Normal) mg/dL Ur Leukocyte Esterase (Negative) Urine Microscopic RBC (0-3) per hpf Urine Microscopic WBC (0-3) per hpf Ur Squamous Epith Cells (None-Few) per lpf Urine Bacteria (None-Few) per hpf Hyaline Casts (None-Few) per lpf Granular Casts (None Seen) per lpf Urine Mucus (Few) Ur Culture Indicated? (NO) 09/20/17 09/20/17 Range/Units 19:22 19:33 WBC (4.3-11.1) K/mcL RBC (3.82-4.97) M/mcL Hgb (11.5-15.4) g/dL Hct (35.3-44.9) % MCV (83.0-100.0) fL MCH (28.0-33.3) pg MCHC (31.6-35.5) g/dL RDW (11.5-14.5) % Plt Count (140-400) K/mcL MPV (9.4-12.4) fL Immature Gran % (0-4) % Seg Neutrophils % % Lymphocytes % % Monocytes % % Eosinophils % % Basophils % % Neutrophils # (1.6-8.9) K/mcL Lymphocytes # (0.6-4.6) K/mcL Monocytes # (0.0-1.3) K/mcL Eosinophils # (0.0-0.6) K/mcL Basophils # (0.0-0.2) K/mcL PT (9.4-12.1) Seconds INR Sodium (136-145) mEq/L Potassium (3.5-5.1) mEq/L Chloride (98-107) mEq/L Carbon Dioxide (23-29) mEq/L BUN (6-20) mg/dL Creatinine (0.60-1.20) mg/dL Est GFR ( Amer) (> 60) Est GFR (Non-Af Amer) (> 60) BUN/Creatinine Ratio (6-26) Glucose (70-105) mg/dL Calculated Osmolality (280-300) Lactic Acid 0.8 (0.5-2.2) mmol/L Calcium (8.6-10.3) mg/dL Total Bilirubin (0.3-1.0) mg/dL AST (13-39) Units/L ALT (7-52) Units/L Alkaline Phosphatase (34-104) Units/L Creatine Kinase (30-223) Units/L Troponin I (< 0.04) ng/mL Serum Total Protein (6.4-8.9) g/dL Albumin (3.5-5.7) g/dL Globulin (2.4-3.5) g/dL Albumin/Globulin Ratio (1.1-2.2) TSH (0.340-5.600) mcIU/mL Urine Color Yellow (Yellow) Urine Clarity Cloudy A (Clear) Urine pH 6.0 (5.0-8.0) pH Units Ur Specific [place] 1.025 (1.010-1.025) Urine Protein >=300 H (Neg-Trace) mg/dL Urine Glucose (UA) Normal (Normal) mg/dL Urine Ketones Negative (Negative) mg/dL Urine Blood Trace-lysed H (Negative) Urine Nitrite Positive A (Negative) Urine Bilirubin Negative (Negative) Urine Urobilinogen Normal (Normal) mg/dL Ur Leukocyte Esterase Trace H (Negative) Urine Microscopic RBC 0-3 (0-3) per hpf Urine Microscopic WBC TNTC H (0-3) per hpf Ur Squamous Epith Cells Many H (None-Few) per lpf Urine Bacteria Many H (None-Few) per hpf Hyaline Casts Few (None-Few) per lpf Granular Casts Few H (None Seen) per lpf Urine Mucus Few (Few) Ur Culture Indicated? NO. A (NO) - Radiology Data Radiology results reviewed: Yes I reviewed the patient's radiology results. CT of head without contrast per radiology reading shows no acute abnormality chest x-ray portable shows no acute abnormality - EKG Data EKG attestation: Yes I reviewed and interpreted this EKG. EKG results narrative: EKG is normal sinus rhythm, patient has old Q waves in leads 3 aVF, also left ventricular hypertrophy with left ventricular heart strain. EKG shows normal: sinus rhythm Rate: normal Rhythm: NSR [place]/QRS: normal Voltage: c/w LVH
[2017-09-20 19:30] LABS: Basophils # 0.1 K/mcL (0.0-0.2); Basophils % 0.7 %; Eosinophils # 0.1 K/mcL (0.0-0.6); Eosinophils % 1.2 %; Hematocrit 36.4 % (35.3-44.9); Immature Granulocytes % 0.3 % (0-4); Lymphocytes # 1.8 K/mcL (0.6-4.6); Lymphocytes % 23.6 %; Mean Corpuscular Hemoglobin 29.4 pg (28.0-33.3); Mean Corpuscular Volume 89.2 fL (83.0-100.0); Mean Platelet Volume 11.7 fL (9.4-12.4); Monocytes # 0.4 K/mcL (0.0-1.3); Neutrophils # 5.2 K/mcL (1.6-8.9); Platelet Count 155 K/mcL (140-400); Red Blood Count 4.08 M/mcL (3.82-4.97); Red Cell Distribution Width 13.1 % (11.5-14.5); Segmented Neutrophils % 69.2 %
[2017-09-20 19:43] LABS: Bilirubin,Urine Negative (Negative); Blood,Urine Trace-lysed (Negative); Clarity,Urine Cloudy (Clear); Color,Urine Yellow (Yellow); Glucose,Urine (UA) Normal (Normal); Ketones,Urine Negative (Negative); Leukocyte Esterase,Urine Trace (Negative); Nitrite,Urine Positive (Negative); Protein,Urine >=300 mg/dL (Neg-Trace); Specific Gravity,Urine 1.025 (1.010-1.025); Urobilinogen,Urine Normal (Normal)
[2017-09-20 19:47] LABS: Alanine Aminotransferase 8 Units/L (7-52); Albumin 3.1 g/dL (3.5-5.7); Alkaline Phosphatase 69 Units/L (34-104); Aspartate Amino Transferase 14 Units/L (13-39); BUN/Creatinine Ratio 16 (6-26); Bilirubin,Total 0.3 mg/dL (0.3-1.0); Blood Urea Nitrogen 23 mg/dL (6-20); Calcium 8.9 mg/dL (8.6-10.3); Carbon Dioxide 25 mEq/L (23-29); Chloride 104 mEq/L (98-107); Creatine Kinase 74 Units/L (30-223); Globulin 3.1 g/dL (2.4-3.5); Glucose 203 mg/dL (70-105); Osmolality,Calculated 289 (280-300); Sodium 135 mEq/L (136-145); Total Protein 6.2 g/dL (6.4-8.9); eGFR For African Americans 46 (> 60); eGFR For Non-African Americans 38 (> 60)
[2017-09-20 19:54] LABS: Bacteria,Urine Many per hpf (None-Few); Squamous Epithelial Cell,Urine Many per lpf (None-Few); WBC,Urine TNTC per hpf (0-3)
[2017-09-20 19:56] LABS: Troponin I < 0.03 ng/mL (< 0.04)
[2017-09-20 19:57] LABS: Granular Casts,Urine Few per lpf (None Seen)
[2017-09-20 20:00] LABS: Hyaline Casts,Urine Few per lpf (None-Few); Mucus,Urine Few (Few)
[2017-09-20 20:04] LABS: RBC,Urine 0-3 per hpf (0-3)
[2017-09-20 20:09] LABS: Thyroid Stimulating Hormone 1.983 mcIU/mL (0.340-5.600)
[2017-09-20] MEDS ORDERED: Cholestyramine 4 GM POWD.PACK PO PRN (20:56)
[2017-09-20] MEDS ORDERED: cefTRIAXone 2,000 MG in Water for inj. (sterile) 20 ML 20 ML IVP SCH (21:00)
[2017-09-20] MEDS: Budesonide/Formoterol 160/4.5 MDI IH SCH (21:48)
[2017-09-20] MEDS: Furosemide 20 MG TABLET PO SCH (21:57)
[2017-09-20] MEDS: cefTRIAXone 2,000 MG in Water for inj. (sterile) 20 ML 20 ML IVP SCH (21:58)
[2017-09-21] MEDS: Aclidinium Bromide [Tudorza Pressair] 400 MCG IH SCH ×3 (00:15→20:45)
[2017-09-21] MEDS ORDERED: Folic Acid 1 MG TABLET PO SCH (09:00)
[2017-09-21] MEDS ORDERED: Lisinopril 20 MG TABLET PO SCH (09:00)
[2017-09-21] MEDS ORDERED: INSULIN GLARGINE 34 UNIT SQ SCH (09:00)
[2017-09-21] MEDS: Furosemide 20 MG TABLET PO SCH ×2 (09:22→18:53)
[2017-09-21] MEDS: Cyanocobalamin (B-12) 1,000 MCG TABLET PO SCH (09:22)
[2017-09-21] MEDS: Aspirin 325 MG TABLET PO SCH (09:23)
[2017-09-21] MEDS: Fluticasone Propionate Nasal 50 MCG/SPRAY BOTTLE NS SCH (09:26)
[2017-09-21] MEDS: Insulin LISPRO 300 UNITS/3 ML VIAL SQ SCH ×3 (09:26→18:46)
[2017-09-21] MEDS: Budesonide/Formoterol 160/4.5 MDI IH SCH ×2 (09:49→21:48)
[2017-09-21] MEDS: Insulin DETEMIR 100 UNIT/ML X5UNITS SQ SCH (12:44)
--- NOTE | 2017-09-21 14:02 | Internal Med History&Physical ---
Date of Encounter: 09/21/17 Time of Encounter: 13:30 Assessment and Plan (1) Hypertensive urgency Current visit: Yes Status: Acute She has been started on lisinopril, Coreg, and Lasix. Blood pressures are improved. (2) CKD (chronic kidney disease) stage 3, GFR 30-59 ml/min Current visit: Yes Status: Acute We will monitor renal indices. (3) Diabetes Current visit: No Status: Acute Check hemoglobin A1c in a.m. Continue Levemir and Accu-Cheks with SSI. Qualifiers: Diabetes mellitus type: type 2 Diabetes mellitus custodial insulin use: without custodial use Diabetes mellitus complication status: with circulatory complication Diabetes mellitus complication detail: with other circulatory complications Qualified Code(s): E11.59 - Type 2 diabetes mellitus with other circulatory complications (4) UTI (urinary tract infection) Current visit: Yes Status: Acute She has been started empirically on Rocephin. Qualifiers: Urinary tract infection type: site unspecified Hematuria presence: without hematuria Qualified Code(s): N39.0 - Urinary tract infection, site not specified Internal Medicine - H&P: HPI Chief complaint: Dizziness Admitted From: Emergency Dept Plans for Post Hospital Care: Home History of present illness: Ms. Arshad is a 57 year old female who came to emergency room stating she had felt dizziness after standing while talking with a neighbor. The dizziness was abrupt in onset and she describes it as true vertigo. She made into the house and had near syncopal episode. She came to emergency room was evaluated and found to have significant hypertension. She was admitted to [facility] floor for ongoing care needs. She states she feels significantly improved at present time. She has a history of hypertension but states she has not been taking her medication for several months claiming that her "steals her medicine". She has known ASHD with 5 vessel CABG February 2014 at [facility]. She had Regadenoson nuclear stress test 10/22/2015 which showed no significant EKG changes. There was a large moderate - severe intensity fixed perfusion defect in the basal mid inferior wall, basal mid inferior lateral wall, and apical lateral wall consistent with prior MA. An echocardiogram 10/21/2015 showed LVEF of 25-30% with biatrial enlargement. No mention of diastolic function was made. Valvular function was not assessed. She denies DVT or pulmonary embolus. Past Med Surg Social Fam HX - Past Medical History Medical history: arthritis, asthma, CHF, COPD, coronary artery disease, CVA, diabetes, hyperlipidemia, hypertension, myocardial infarction, other Additional medical history: GOUT Psychiatric history: anxiety, depression - Past Surgical History Surgical History: cholecystectomy, coronary bypass (CABG), other Additional surgical history: t&a, foot surgery - Social History Smoking Status: Current every day smoker Smokeless Tobacco Status: No Alcohol use: none Drug use: none - Family History Mother Living Status: Still Living Father Adopted: No Family Member Ethnicity: Non- Living Status: Hx Family Cardiac Disorders: Yes Hx Family Endocrine Disorder: Yes Internal Medicine - H&P: Meds Budesonide/Formoterol 160/4.5 [Symbicort 160/4.5] 2 puff IH BIDR 01/29/15 [ History] Gabapentin [Neurontin] 600 mg PO QAM 01/29/15 [History] Roflumilast [Daliresp] 500 mcg PO DAILY 01/29/15 [History] Omeprazole [PriLOSEC] 20 mg PO DAILY 11/01/15 [History] Aspirin 325 mg PO DAILY 11/24/15 [History] Carvedilol [Coreg] 3.125 mg PO BID 11/24/15 [History] Cyanocobalamin (B-12) [Vitamin B12] 1,000 mg PO DAILY 11/24/15 [History] Insulin Glargine [Lantus] 34 unit SQ QAM 11/24/15 [History] Lisinopril [Zestril] 20 mg PO DAILY 11/24/15 [History] Albuterol Sulfate [Ventolin Hfa] 2 puff IH QID PRN 11/25/15 [History] Insulin ASPART [Novolog Flexpen] 10 unit SQ TID 11/25/15 [History] Ferrous Sulfate 325 mg PO BIDWM #60 tablet 01/08/16 [Rx] Aclidinium [place] [Tudorza Pressair] 400 mcg IH BID 07/27/16 [History] Atorvastatin Calcium 80 mg PO QDPC 07/27/16 [History] Cholestyramine/Aspartame [Cholestyramine Light Packet] 4 gm PO BID PRN 07/27/16 [History] Fluticasone Propionate Nasal [Flonase] 100 mcg NS QDPC 07/27/16 [History] Folic Acid 1 mg PO DAILY #30 tablet 07/27/16 [Rx] Furosemide [Lasix] 20 mg PO BID 365 Days tablet 07/27/16 [Rx] Gabapentin [Neurontin] 900 mg PO QPM 07/27/16 [History] Quetiapine Fumarate [Seroquel] 800 mg PO QPM 07/27/16 [History] Ibuprofen [Motrin] 800 mg PO Q8HR #14 tablet 08/07/17 [Rx] 3 Allergy/AdvReac Type Severity Reaction Status Date / Time No Known Allergies Allergy Verified 08/07/17 01:29 All Systems PM: A 10-system review of systems was performed and is negative for pertinent findings except as documented above in the HPI. Review of systems: Review of systems from her July 2016 [facility] hospitalization were reviewed and revised as below. Gen.: Her weight has decreased from 167 pounds at the March 2014 [facility] hospitalization to approximately 160 pounds July 2016 to approximately 145 pounds now Cardiovascular: As per history of present illness Respiratory: She has smoked since age 17 up to one pack per day. She had PFTs approximately June 2013 and was told she had COPD/emphysema. She wears oxygen / at home. She claims a negative LISSETT workup in the past GI: She has had cholecystectomy. She had colonoscopy with polypectomy and an unremarkable EGD June 2013 at [facility]. She has GERD. She denies disorders with her liver or exocrine pancreas : She denies hematuria dysuria or kidney stones. She has been told she has chronic kidney disease stage III. Neurologic: She denies large distribution strokes or seizures Endocrine: She was diagnosed with DM 2 approximately 1999. She denies thyroid disease but has hyperlipidemia Hematology/oncology: She denies internal malignancies. She had anemia testing done in December 2015 which showed folate deficiency. Psychiatric: She has anxiety and depression Musk skeletal: She has fibromyalgia and was diagnosed with possible diabetic peripheral neuropathy in the past Dermatologic: She has had MRSA in skin lesions on her back in the past. These have healed. - Constitutional Vitals: Temp Pulse Resp BP Pulse Ox 98.6 F 78 18 141/71 96 09/21/17 10:24 09/21/17 10:24 09/21/17 10:24 09/21/17 10:24 09/21/17 10:24 Exam: Gen.: She is a well-developed well-nourished female resting comfortably in bed who appears in no acute distress HEENT: Head is atraumatic and normal cephalic. Eyes: EOMI. There is no scleral icterus. Mouth: Mucosa is moist. Neck: Supple and nontender. There is no thyromegaly or adenopathy noted. Heart: Regular without murmurs gallops or ectopics Lungs: No wheezes or crackles are heard. Abdomen: Soft and nontender. No masses or guarding are noted. Extremities: There is no cyanosis edema or clubbing noted. Dorsalis pedis and posterior tibial pulses are trace to 1+ palpable bilaterally. Neurologic: Mental status: She is talkative and a good historian. Cranial nerves: Smile is symmetric. Forehead wrinkles bilaterally. Tongue protrudes midline. EOMI. Motor: There is no pronator drift. Cerebellar: Finger to nose is intact bilaterally. Skin: Warm and dry Internal Med - H&P Results - Labs CBC & Chem 7: 09/20/17 19:22 09/20/17 19:22
[2017-09-21] MEDS: cefTRIAXone 2,000 MG in Water for inj. (sterile) 20 ML 20 ML IVP SCH (20:43)
[2017-09-21] MEDS: Lactobacillus 1 EACH CAP.SPRINK PO SCH (20:44)
[2017-09-22] MEDS ORDERED: *HR* Enoxaparin 40 MG/0.4 ML SYRINGE SQ ONE (06:20)
[2017-09-22 06:22] LABS: Basophils % 0.5 %; Eosinophils # 0.1 K/mcL (0.0-0.6); Hematocrit 32.4 % (35.3-44.9); Hemoglobin 10.7 g/dL (11.5-15.4); Immature Granulocytes % 0.2 % (0-4); Lymphocytes # 1.8 K/mcL (0.6-4.6); Lymphocytes % 30.1 %; Mean Corpuscular Hemoglobin 29.9 pg (28.0-33.3); Mean Corpuscular Volume 90.5 fL (83.0-100.0); Mean Platelet Volume 12.5 fL (9.4-12.4); Monocytes # 0.4 K/mcL (0.0-1.3); Monocytes % 6.6 %; Neutrophils # 3.6 K/mcL (1.6-8.9); Platelet Count 129 K/mcL (140-400); Red Blood Count 3.58 M/mcL (3.82-4.97); Red Cell Distribution Width 13.1 % (11.5-14.5); Segmented Neutrophils % 60.6 %
[2017-09-22 06:48] LABS: Calcium 8.5 mg/dL (8.6-10.3); Potassium 4.5 mEq/L (3.5-5.1)
[2017-09-22 06:55] VITALS: BP 134/62
[2017-09-22] MEDS: Furosemide 20 MG TABLET PO SCH (08:16)
[2017-09-22] MEDS: Cyanocobalamin (B-12) 1,000 MCG TABLET PO SCH (08:16)
[2017-09-22] MEDS: Aspirin 325 MG TABLET PO SCH (08:16)
[2017-09-22] MEDS: Lactobacillus 1 EACH CAP.SPRINK PO SCH (08:16)
[2017-09-22] MEDS: Fluticasone Propionate Nasal 50 MCG/SPRAY BOTTLE NS SCH (08:17)
[2017-09-22] MEDS: Insulin DETEMIR 100 UNIT/ML X5UNITS SQ SCH (08:18)
[2017-09-22] MEDS: Insulin LISPRO 300 UNITS/3 ML VIAL SQ SCH (08:18)
[2017-09-22] MEDS: Budesonide/Formoterol 160/4.5 MDI IH SCH (09:06)
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
--- NOTE | 2017-09-22 20:47 | Electrocardiograph Report ---
[address] [place], [place] [address] Test Date: 2017-09-20 Pat Name: Vael Arshad Department: [id number] Room: [facility] Gender: F Garage Hand: Fermin : 1960 Requested By: Henna Mayorga Order Number: [id number] Reading MD: Thuy Goodson Measurements Intervals [place] Rate: 80 P: 51 OR: 145 QRS: 22 QRSD: 110 T: 114 QT: 392 QTc: 428 Interpretive Statements SINUS RHYTHM POSSIBLE LEFT ATRIAL ENLARGEMENT INFERIOR MYOCARDIAL INFARCTION, PROBABLY OLD WITH POSTERIOR EXTENSION MODERATE T-WAVE ABNORMALITY, CONSIDER LATERAL ISCHEMIA Electronically Signed On 09-22-2017 17:19:28 EDT by Thuy Goodson
== END 2017-09-22 11:56 | disposition home or self-care (01) ==
LOC: EMEROOPIK 18:59 → INPPIK 18:59
PROVIDERS: ADMIT Internal Medicine; ATTEND Internal Medicine